=== PATIENT | male | born 1930 ===

== ENCOUNTER 2019-01-15 08:13 | Outpatient (CLI) | payer MEDICARE, OTHER ==
--- NOTE | 2019-01-15 11:28 | CT ---
ABDOMEN AND PELVIC CT SCAN WITHOUT CONTRAST: HISTORY: Gastroparesis. COMPARISON: None. FINDINGS: There are interstitial and groundglass opacities of the lung bases bilaterally. Consolidation of the medial right lower lobe is present. Bilateral pleural-based density is also present, partially visualized. Liver: Unremarkable. Gallbladder: Moderately distended. Pancreas: Atrophic. Spleen: Unremarkable. Adrenal glands: Unremarkable. Kidneys: Calcified, exophytic cyst emanates from superior pole of the right kidney with numerous kennedy tional bilateral renal cysts, incompletely evaluated by noncontrast imaging. Small hyperdense cyst emanates from the lateral margin of the mid right kidney. No overt hydronephrosis. There is renal par enchymal atrophy, more notable on the left. Bowel: Marked distention of debris-filled gastric lumen. Mild air-filled distention of the descending duodenum. No subsequent, significant dilatation of the distal duodenum. Urinary Bladder: Decompressed, limiting assessment. Free Air: No free air. Ascites: No ascites. Osseous structures: No acute osseous abnormalities. IMPRESSION: Prominent distention of debris-filled stomach with mild air-filled distention of the descending duode num. Finding indicates sequela from gastroparesis. Possibility of a distal obstructing mural-based duodenal lesion cannot be excluded on the basis of this exam. Follow-up with gastroenterology consult ation is recommended. Transcribed Date/Time: 01/15/2019 11:30 AM
== END 2019-01-15 08:14 | disposition home or self-care (01) ==
LOC: SJX 08:13
DX: K31.1 Adult hypertrophic pyloric stenosis (principal); K31.89 Other diseases of stomach and duodenum
CPT/HCPCS: 74176